=== PATIENT | female | born 1990 | race Hispanic/Latino ===

== ENCOUNTER 2024-10-14 09:17 | Inpatient (IN) | payer MEDICAID, OTHER, SELFPAY ==
[~2024-10-14 09:17] MED LIST: Bupivacaine/Epinephrine 0.25% 30 ML VIAL ONE
[2024-10-14] MEDS ORDERED: Misoprostol 200 MCG TAB PR PRN (10:03)
[2024-10-14] MEDS ORDERED: Acetaminophen 500 MG TAB PO PRN (10:03)
[2024-10-14] MEDS ORDERED: Ondansetron PF 4 MG/2 ML Vial IVP PRN ×3 (10:03→22:38)
[2024-10-14] MEDS ORDERED: Carboprost 250 MCG/ML AMP IM PRN (10:03)
[2024-10-14] MEDS ORDERED: Methylergonovine 0.2 MG/ML VIAL IM PRN (10:03)
[2024-10-14] MEDS ORDERED: Tranexamic Acid 1,000 MG/10 ML VIAL IVP PRN (10:03)
[2024-10-14] MEDS ORDERED: Promethazine HCl 25 MG/ML VIAL IM PRN ×2 (10:03→14:09)
[2024-10-14] MEDS ORDERED: hydrALAZINE 20 MG/ML VIAL SLOW IVP PRN ×3 (10:03→22:38)
[2024-10-14] MEDS ORDERED: Diphenoxylate HCl/Atropine Tablet PO PRN (10:03)
[2024-10-14 10:11] VITALS: BMI 29.7
[2024-10-14] MEDS ORDERED: Oxytocin 30 units/NS 500 ML 500 ML IV SCH (10:15)
[2024-10-14 11:06] LABS: Hematocrit 32.3 % (34.9-44.5); Hemoglobin 10.8 g/dL (12.0-15.5); Mean Corpuscular HGB CONC 33.4 g/dL (32.0-36.0); Mean Corpuscular Hemoglobin 31.3 pg (27.0-33.0); Mean Corpuscular Volume 93.6 fL (81.6-98.3); Mean Platelet Volume 11.4 fL (7.4-10.4); Platelet Count 219 10x3/uL (150-450); RBC Distribution Width 13.2 % (11.5-14.5); Red Blood Cell (RBC) Count 3.45 10x6/uL (3.90-5.03); White Blood Cell (WBC) Count 4.5 10x3/uL (3.5-10.5)
[2024-10-14 11:32] LABS: ALT (SGPT) 36 U/L (8-55); AST (SGOT) 33 U/L (5-34); Albumin 2.5 g/dL (3.5-5.0); Alkaline Phosphatase 267 U/L (40-110); Anion Gap 13 mmol/L (10-20); BUN (Urea Nitrogen) 10 mg/dL (7.0-18.7); Bilirubin, Total 0.5 mg/dL (0.2-1.2); Calc. Creatinine Clearance 131 mL/min (70-130); Carbon Dioxide 19 mmol/L (22-29); Chloride 108 mmol/L (98-107); Estimated GFR 119; Globulin 3.6 g/dL (2.4-3.5); Glucose 103 mg/dL (70-105); Potassium 4.2 mmol/L (3.5-5.1); Protein, Total 6.1 g/dL (6.0-8.3); Sodium 136 mmol/L (136-145)
[2024-10-14 11:52] LABS: Syphilis Antibody Nonreactive (Nonreactive); Syphilis Antibody Index 0.07 S/CO (<1.00 Non-Reactive)
[2024-10-14 11:53] LABS: HBsAg Index 0.19 S/CO (0-0.99); Hep B Surf Ag - L&D Non-Reactive S/CO (NonReactive)
[2024-10-14] MEDS: Lactated Ringer's 1,000 ML IV SCH (12:25)
[2024-10-14] MEDS: Oxytocin 30 units/NS 500 ML 500 ML IV SCH (12:25)
[2024-10-14] MEDS ORDERED: Acetaminophen 325 MG TAB PO PRN (14:09)
[2024-10-14] MEDS ORDERED: Naloxone HCl 0.4 mg/ml Vial IVP PRN ×2 (14:09)
[2024-10-14] MEDS ORDERED: diphenhydrAMINE 50 MG/ML VIAL IVP PRN (14:09)
[2024-10-14] MEDS ORDERED: Moisturizing Cream (Eucerin) 113 GM JAR TOP PRN (14:09)
[2024-10-14] MEDS ORDERED: Lactated Ringer's 500 ML IV PRN (14:09)
[2024-10-14] MEDS ORDERED: ePHEDrine Sulfate 50 MG/10 ML VIAL SLOW IVP PRN (14:09)
[2024-10-14] MEDS ORDERED: fentaNYL 2 mcg/Ropivacaine 0.2% Epidural 100 ML CADD EPIDURAL SCH (14:15)
[2024-10-14] MEDS: fentaNYL/Ropivacaine Epidural 100 ML ONE (14:45)
[2024-10-14] MEDS ORDERED: Bisacodyl 10 MG SUPP PR PRN ×2 (19:39→22:38)
[2024-10-14] MEDS ORDERED: Milk Of Magnesia 30 ML UDCUP PO PRN ×2 (19:39→22:38)
[2024-10-14] MEDS ORDERED: diphenhydrAMINE 25 MG CAP PO PRN ×2 (19:39→22:38)
[2024-10-14] MEDS: Boostrix 0.5 ML (Tdap) VIAL (>/=7 yrs of age) IM ONE (21:01)
[2024-10-14] MEDS: Ibuprofen 800 MG TAB PO SCH (22:00)
[2024-10-14] MEDS: Docusate 100 MG CAP PO SCH (22:01)
[2024-10-14] MEDS ORDERED: Benzocaine-Menthol 82.5 ML CAN TOP PRN (22:13)
[2024-10-14] MEDS ORDERED: Lanolin Ointment 7 GM TUBE TOP PRN (22:13)
[2024-10-14] MEDS ORDERED: Preparation H Ointment 28 GM TUBE PR PRN (22:38)
[2024-10-15] MEDS: Ibuprofen 800 MG TAB PO SCH (05:26)
[2024-10-15] MEDS ORDERED: Ferrous Sulfate 325 MG TAB PO SCH (08:00)
[2024-10-15] MEDS: Ferrous Sulfate 325 MG TAB PO SCH (08:18)
[2024-10-15] MEDS ORDERED: Prenatal Vitamin 1 TAB PO SCH (09:00)
[2024-10-15] MEDS: Prenatal Vitamin 1 TAB PO SCH (09:16)
[2024-10-15] MEDS: Docusate 100 MG CAP PO SCH (09:16)
[2024-10-15 19:41] VITALS: BP 121/66; TEMP 98.4
== END 2024-10-15 21:15 | disposition home or self-care (01) | DRG 807 ==
LOC: CSHLD 09:17 → CSHPP 10-15 04:35
PROVIDERS: ADMIT Obstetrics & Gynecology; ATTEND Obstetrics & Gynecology
PROC: 10E0XZZ Delivery of Products of Conception, External Approach (ICD-10-PCS; principal; 2024-10-14)
PROC: 0KQM0ZZ Repair Perineum Muscle, Open Approach (ICD-10-PCS; 2024-10-14)
PROC: 10907ZC Drainage of Amniotic Fluid, Therapeutic from Products of Conception, Via Natural or Artificial Opening (ICD-10-PCS; 2024-10-14)
DX: O26.643 Intrahepatic cholestasis of pregnancy, third trimester (principal); Z37.0 Single live birth; O99.62 Diseases of the digestive system complicating childbirth; E78.79 Other disorders of bile acid and cholesterol metabolism; K76.89 Other specified diseases of liver; Z3A.39 39 weeks gestation of pregnancy; O70.1 Second degree perineal laceration during delivery; K21.9 Gastro-esophageal reflux disease without esophagitis
CPT/HCPCS: 36415; 51702; 80053; 85027; 86780; 86850; 86900; 86901; 87340; 88307; J2590; J7120